=== PATIENT | female | born 1960 | race Caucasian/White ===

== ENCOUNTER 2017-08-02 20:58 | Emergency (ER) | payer SELFPAY ==
[~2017-08-02] VITALS: Ht 149.9 cm; Wt 54.4 kg
--- NOTE | 2017-08-02 20:58 | ER Report ---
History and Physical Time Seen By MD: 20:57 HPI/ROS CHIEF COMPLAINT: dysuria HISTORY OF PRESENT ILLNESS: This is a 57 year old female. She is intoxicated. She called the ambulance because of lower abdominal spasms that have been happening off and on for several weeks. Having some dysuria when she urinates. Also has some itching in the perineal area, and possibly a little bit of rash/ redness. No vaginal discharge. Currently without pain. No shortness of breath. No chest pain. No problems with bowels. Allergies: Coded Allergies: No Known Drug Allergies (Verified , 12/24/16) Home Meds Reported Medications Ranitidine Hcl (RANITIDINE HCL) 75 Mg Tablet, 150 MG PO QDAY 03/14/13 Omeprazole Magnesium (Prilosec Otc) 20 Mg Tablet.dr, 20 MG PO DAILY 05/11/12 Discontinued Scripts Amoxicillin/Pot Clav 875-125 Mg Tab (AUGMENTIN 875-125 TABLET) 1 Each Tablet, 1 TAB PO Q12H for 7 Days, #14 TAB Prov:SEJAL PRATER MD 12/24/16 Reviewed Nurses Notes: Yes Hx Smoking: Yes (1/2PPD) Smoking Status: Current: Every Day Smoker Exposure to Second Hand Smoke?: Yes Hx Substance Use Disorder: No Hx Alcohol Use: Yes Constitutional Vital Sign - Last 24 Hours 08/02/17 08/02/17 08/02/17 08/02/17 20:55 20:58 21:00 21:13 Temp 97.0 Pulse 67 65 ??? Resp 18 B/P (MAP) 130/45 133/88 (103) Pulse Ox 92 92 08/02/17 08/02/17 08/02/17 08/02/17 21:28 21:30 21:40 21:43 Pulse 67 80 B/P (MAP) 148/94 (112) 133/101 (112) Pulse Ox 91 90 08/02/17 21:58 Pulse ??? Physical Exam General Appearance: The patient is alert. No acute distress. Intoxicated. Eyes: Pupils are equal, round. No pallor or icterus, but she does have some injection. ENT: Mucous membranes are moist. Normal oral mucosa. Posterior oropharynx is normal. Respiratory: Lungs are clear to auscultation. Cardiovascular: Regular rate and rhythm. No murmurs, gallops or rubs. Gastrointestinal: Abdomen is soft and non tender. Nondistended. Normal active bowel sounds. No costovertebral angle tenderness with percussion. Genitourinary: Patient did not want full exam in this area, can see some slight rash with some satellite lesions on the perineal area. Neurological: Alert and oriented x3. No focal neurologic deficits. Skin: Warm and dry. No other rash other than noted above. DIFFERENTIAL DIAGNOSIS: After history and physical exam, differential diagnosis was considered for dysuria with itching and rash. Will check for urinary tract infection. Also looks like possible tinnea or yeast. Medical Decision Making Data Points Result Diagram: 08/02/17 2100 08/02/17 2100 Laboratory Hematology Test 08/02/17 21:00 08/02/17 21:20 Red Blood Count 4.67 M/uL (4.17-5.56) Mean Corpuscular Volume 95.3 fL (80.0-96.0) Mean Corpuscular Hemoglobin 32.4 pg (26.0-33.0) Mean Corpuscular Hemoglobin Concent 33.9 g/dL (32.0-36.0) Red Cell Distribution Width 13.7 % (11.5-14.5) Mean Platelet Volume 7.8 fL (7.2-11.1) Neutrophils (%) (Auto) 36.1 % (39.4-72.5) Lymphocytes (%) (Auto) 55.9 % (17.6-49.6) Monocytes (%) (Auto) 4.7 % (4.1-12.4) Eosinophils (%) (Auto) 2.5 % (0.4-6.7) Basophils (%) (Auto) 0.8 % (0.3-1.4) Nucleated RBC Relative Count (auto) 0.0 /100WBC Neutrophils # (Auto) 2.6 K/uL (2.0-7.4) Lymphocytes # (Auto) 4.0 K/uL (1.3-3.6) Monocytes # (Auto) 0.3 K/uL (0.3-1.0) Eosinophils # (Auto) 0.2 K/uL (0.0-0.5) Basophils # (Auto) 0.1 K/uL (0.0-0.1) Nucleated RBC Absolute Count (auto) 0.00 K/uL Sodium Level 139 mmol/L (137-145) Potassium Level 3.6 mmol/L (3.5-5.0) Chloride Level 103 mmol/L (98-107) Carbon Dioxide Level 23 mmol/L (22-31) Blood Urea Nitrogen 8 mg/dl (7-18) Creatinine 0.90 mg/dl (0.52-1.04) Glomerular Filtration Rate Calc > 60.0 Random Glucose 74 mg/dl (75-110) Calcium Level 9.2 mg/dl (8.4-10.2) Total Bilirubin 0.5 mg/dl (0.2-1.3) Aspartate Amino Transf (AST/SGOT) 30 U/L (0-35) Alanine Aminotransferase (ALT/SGPT) 33 U/L (0-56) Alkaline Phosphatase 94 U/L (0-126) Total Protein 7.6 gm/dl (6.3-8.2) Albumin 4.4 g/dl (3.5-5.0) Urine Color Adelina Urine Clarity Clear Urine pH 6.0 pH (4.8-9.5) Urine Specific [place] 1.002 Urine Protein Negative mg/dL (NEGATIVE) Urine Glucose (UA) Negative mg/dL (NEGATIVE) Urine Ketones Negative mg/dL (NEGATIVE) Urine Blood Small (NEGATIVE) Urine Nitrite Positive (NEGATIVE) Urine Bilirubin Negative (NEGATIVE) Urine Urobilinogen Negative mg/dL (0.2-1.9) Urine Leukocyte Esterase Negative (NEGATIVE) Urine RBC <1 /HPF (0-2/HPF) Urine WBC None /HPF (0-5/HPF) Urine Squamous Epithelial Cells None /LPF (</=FEW) Urine Bacteria Negative /HPF (NONE-FEW) Urine Mucus None /HPF (NONE-FEW) Chemistry Test 08/02/17 21:00 08/02/17 21:20 White Blood Count 7.1 k/uL (4.5-11.0) Red Blood Count 4.67 M/uL (4.17-5.56) Hemoglobin 15.1 g/dL (12.0-16.0) Hematocrit 44.6 % (34.0-47.0) Mean Corpuscular Volume 95.3 fL (80.0-96.0) Mean Corpuscular Hemoglobin 32.4 pg (26.0-33.0) Mean Corpuscular Hemoglobin Concent 33.9 g/dL (32.0-36.0) Red Cell Distribution Width 13.7 % (11.5-14.5) Platelet Count 248 K/uL (150-450) Mean Platelet Volume 7.8 fL (7.2-11.1) Neutrophils (%) (Auto) 36.1 % (39.4-72.5) Lymphocytes (%) (Auto) 55.9 % (17.6-49.6) Monocytes (%) (Auto) 4.7 % (4.1-12.4) Eosinophils (%) (Auto) 2.5 % (0.4-6.7) Basophils (%) (Auto) 0.8 % (0.3-1.4) Nucleated RBC Relative Count (auto) 0.0 /100WBC Neutrophils # (Auto) 2.6 K/uL (2.0-7.4) Lymphocytes # (Auto) 4.0 K/uL (1.3-3.6) Monocytes # (Auto) 0.3 K/uL (0.3-1.0) Eosinophils # (Auto) 0.2 K/uL (0.0-0.5) Basophils # (Auto) 0.1 K/uL (0.0-0.1) Nucleated RBC Absolute Count (auto) 0.00 K/uL Glomerular Filtration Rate Calc > 60.0 Calcium Level 9.2 mg/dl (8.4-10.2) Total Bilirubin 0.5 mg/dl (0.2-1.3) Aspartate Amino Transf (AST/SGOT) 30 U/L (0-35) Alanine Aminotransferase (ALT/SGPT) 33 U/L (0-56) Alkaline Phosphatase 94 U/L (0-126) Total Protein 7.6 gm/dl (6.3-8.2) Albumin 4.4 g/dl (3.5-5.0) Urine Color Adelina Urine Clarity Clear Urine pH 6.0 pH (4.8-9.5) Urine Specific [place] 1.002 Urine Protein Negative mg/dL (NEGATIVE) Urine Glucose (UA) Negative mg/dL (NEGATIVE) Urine Ketones Negative mg/dL (NEGATIVE) Urine Blood Small (NEGATIVE) Urine Nitrite Positive (NEGATIVE) Urine Bilirubin Negative (NEGATIVE) Urine Urobilinogen Negative mg/dL (0.2-1.9) Urine Leukocyte Esterase Negative (NEGATIVE) Urine RBC <1 /HPF (0-2/HPF) Urine WBC None /HPF (0-5/HPF) Urine Squamous Epithelial Cells None /LPF (</=FEW) Urine Bacteria Negative /HPF (NONE-FEW) Urine Mucus None /HPF (NONE-FEW) Urinalysis Test 08/02/17 21:20 Urine Color Adelina Urine Clarity Clear Urine pH 6.0 pH (4.8-9.5) Urine Specific [place] 1.002 Urine Protein Negative mg/dL (NEGATIVE) Urine Glucose (UA) Negative mg/dL (NEGATIVE) Urine Ketones Negative mg/dL (NEGATIVE) Urine Blood Small (NEGATIVE) Urine Nitrite Positive (NEGATIVE) Urine Bilirubin Negative (NEGATIVE) Urine Urobilinogen Negative mg/dL (0.2-1.9) Urine Leukocyte Esterase Negative (NEGATIVE) Urine RBC <1 /HPF (0-2/HPF) Urine WBC None /HPF (0-5/HPF) Urine Squamous Epithelial Cells None /LPF (</=FEW) Urine Bacteria Negative /HPF (NONE-FEW) Urine Mucus None /HPF (NONE-FEW) ED Course/Re-evaluation Clinical Indication for ER IV: IV Access ED Course urinalysis unremarkable other than nitrites and mild blood on dipstick, but microscopic negative. Will culture. Treat with Diflucan x1 dose for fungal infection. Decision to Disposition Date: Aug 02, 2017 Decision to Disposition Time: 22:04 Depart Departure Latest Vital Signs Vital Signs Date Time Temp Pulse Resp B/P (MAP) Pulse Ox O2 Delivery O2 Flow Rate FiO2 08/02/17 21:58 ??? 08/02/17 21:43 90 08/02/17 21:40 133/101 (112) 08/02/17 20:55 97.0 18 Impression: Primary Impression: Yeast vaginitis Condition: Improved Disposition: HOME OR SELF-CARE Patient Instructions: Dysuria (ED), Skin Yeast Infection (ED) Additional Instructions: Call your regular doctor to schedule a follow-up visit. Take Diflucan 150mg tablet one time tomorrow morning. A urine culture will be done and should be available in about 48-72hours. NICKI BERNARD MD Aug 02, 2017 20:58
[2017-08-02 21:21] LABS: PLATELET COUNT, AUTOMATED 248 K/uL (150-450)
[2017-08-02 21:40] VITALS: BP 133/101
[2017-08-02] MEDS ORDERED: FLUCONAZOLE 150 MG TAB PO ONE (22:05)
== END 2017-08-02 22:14 | disposition home or self-care (01) ==
LOC: ER 21:02
DX: N76.0 Acute vaginitis (principal)
CPT/HCPCS: 81001; 82040; 82247; 82310; 82374; 82435; 82565; 82947; 84075; 84132; 84155; 84295; 84450; 84460; 84520; 85025; 87088; 99284

== ENCOUNTER → 2017-08-02 | Outpatient (CLI) | payer SELFPAY ==
[~2017-08-02] MED LIST: ACYC800T99 PO; AMOX-559 PO; CEP500 PO; CEPH500T7 PO; COLACE; DOXY100T3 PO; HCTZ PO; KET10 PO; LIDO700A29 TD; LOR5 PO; LOR5/325 PO; MET10; NAP250 PO; OMEP-153 PO; OMEP-218 PO; RABE20TA33 PO; RANI25TA2 PO; RANI75TA5 PO; [UNRECOGNIZED DRUG - CODE]
== END ==
LOC: AMB 20:30
PROVIDERS: ATTEND Nurse Practitioner
DX: R39.89 Other symptoms and signs involving the genitourinary system (principal); K59.00 Constipation, unspecified
CPT/HCPCS: A0425; A0427

== ENCOUNTER 2017-09-23 22:17 | Emergency (ER) | payer SELFPAY ==
--- NOTE | 2017-09-23 22:31 | ER Report ---
History and Physical Time Seen By MD: 22:24 HPI/ROS CHIEF COMPLAINT: Chest pain or shortness of breath HISTORY OF PRESENT ILLNESS: This is a 57-year-old female. She came in by EMS because of chest pain and shortness of breath. They gave her nitroglycerin and aspirin in the field and the pain went away. Patient says she has not been drinking but is clearly intoxicated. Similar to prior visits. She denies any pain at this time. She no longer feels short of breath. She denies any cough. Sounds like the chest pain and shortness breath started sometime tonight but she cannot pinpoint exactly when. She denies any nausea or vomiting or abdominal pain. She has no muscle aches or pains. She denies any fevers or chills. She is not very cooperative with answering questions at this time. Allergies: Coded Allergies: No Known Drug Allergies (Verified , 09/23/17) Home Meds Discontinued Reported Medications Ranitidine Hcl (RANITIDINE HCL) 75 Mg Tablet, 150 MG PO QDAY 03/14/13 Omeprazole Magnesium (Prilosec Otc) 20 Mg Tablet.dr, 20 MG PO DAILY 05/11/12 Reviewed Nurses Notes: Yes Hx Smoking: Yes (1/2PPD) Smoking Status: Current: Every Day Smoker Exposure to Second Hand Smoke?: Yes Hx Substance Use Disorder: No Hx Alcohol Use: Yes Constitutional Vital Sign - Last 24 Hours 09/23/17 09/23/17 09/23/17 09/23/17 22:24 22:26 22:32 22:38 Temp 97.9 Pulse 65 66 Resp 17 20 B/P (MAP) 114/77 (89) 114/77 116/79 (91) Pulse Ox 87 96 O2 Delivery Room Air 09/23/17 09/23/17 09/23/17 09/23/17 22:43 22:47 23:00 23:02 Pulse 62 64 Resp 75 16 B/P (MAP) 104/67 (79) Pulse Ox 95 97 O2 Flow Rate 3.0 09/23/17 23:02 Pulse 64 Resp 16 Pulse Ox 97 Physical Exam General Appearance: The patient is alert, has no immediate need for airway protection and no current signs of toxicity. Eyes: Pupils equal and round no injection. ENT: Normal oral mucosa. Moist mucous membranes. Neck: Neck is supple and non tender. Respiratory: Chest is non tender, lungs are clear to auscultation. Cardiac: regular rate and rhythm Gastrointestinal: Abdomen is soft and non tender, no masses, bowel sounds normal. Musculoskeletal: Extremities have full range of motion. Skin: No rashes or lesions. DIFFERENTIAL DIAGNOSIS: After history and physical exam differential diagnosis was considered for chest pain including but not limited to myocardial ischemia, pericarditis pulmonary embolus, chest wall pain, pleural inflammation and pulmonary infectious causes. Medical Decision Making Data Points Result Diagram: 09/23/17220909/23/172209 Laboratory Hematology Test 09/23/17 22:10 09/23/17 22:34 Red Blood Count 4.82 M/uL (4.17-5.56) Mean Corpuscular Volume 96.0 fL (80.0-96.0) Mean Corpuscular Hemoglobin 32.1 pg (26.0-33.0) Mean Corpuscular Hemoglobin Concent 33.5 g/dL (32.0-36.0) Red Cell Distribution Width 13.5 % (11.5-14.5) Mean Platelet Volume 8.2 fL (7.2-11.1) Neutrophils (%) (Auto) 47.0 % (39.4-72.5) Lymphocytes (%) (Auto) 45.2 % (17.6-49.6) Monocytes (%) (Auto) 5.4 % (4.1-12.4) Eosinophils (%) (Auto) 1.7 % (0.4-6.7) Basophils (%) (Auto) 0.7 % (0.3-1.4) Nucleated RBC Relative Count (auto) 0.1 /100WBC Neutrophils # (Auto) 4.0 K/uL (2.0-7.4) Lymphocytes # (Auto) 3.9 K/uL (1.3-3.6) Monocytes # (Auto) 0.5 K/uL (0.3-1.0) Eosinophils # (Auto) 0.1 K/uL (0.0-0.5) Basophils # (Auto) 0.1 K/uL (0.0-0.1) Nucleated RBC Absolute Count (auto) 0.01 K/uL D-Dimer Quantitative (PE/DVT) 0.32 ug/ml (0-0.50) Sodium Level 148 mmol/L (137-145) Potassium Level 3.4 mmol/L (3.5-5.0) Chloride Level 109 mmol/L (98-107) Carbon Dioxide Level 22 mmol/L (22-31) Blood Urea Nitrogen 9 mg/dl (7-18) Creatinine 0.70 mg/dl (0.52-1.04) Glomerular Filtration Rate Calc > 60.0 Random Glucose 65 mg/dl (75-110) Calcium Level 9.3 mg/dl (8.4-10.2) Total Bilirubin 0.4 mg/dl (0.2-1.3) Aspartate Amino Transf (AST/SGOT) 40 U/L (0-35) Alanine Aminotransferase (ALT/SGPT) 43 U/L (0-56) Alkaline Phosphatase 87 U/L (0-126) Troponin I < 0.012 ng/ml B-Type Natriuretic Peptide 52 pg/ml (0-100) Total Protein 8.2 gm/dl (6.3-8.2) Albumin 4.7 g/dl (3.5-5.0) Influenza Virus Type A (PCR) Negative (NEGATIVE) Influenza Virus Type B (PCR) Negative (NEGATIVE) Chemistry Test 09/23/17 22:10 09/23/17 22:34 White Blood Count 8.5 k/uL (4.5-11.0) Red Blood Count 4.82 M/uL (4.17-5.56) Hemoglobin 15.5 g/dL (12.0-16.0) Hematocrit 46.3 % (34.0-47.0) Mean Corpuscular Volume 96.0 fL (80.0-96.0) Mean Corpuscular Hemoglobin 32.1 pg (26.0-33.0) Mean Corpuscular Hemoglobin Concent 33.5 g/dL (32.0-36.0) Red Cell Distribution Width 13.5 % (11.5-14.5) Platelet Count 263 K/uL (150-450) Mean Platelet Volume 8.2 fL (7.2-11.1) Neutrophils (%) (Auto) 47.0 % (39.4-72.5) Lymphocytes (%) (Auto) 45.2 % (17.6-49.6) Monocytes (%) (Auto) 5.4 % (4.1-12.4) Eosinophils (%) (Auto) 1.7 % (0.4-6.7) Basophils (%) (Auto) 0.7 % (0.3-1.4) Nucleated RBC Relative Count (auto) 0.1 /100WBC Neutrophils # (Auto) 4.0 K/uL (2.0-7.4) Lymphocytes # (Auto) 3.9 K/uL (1.3-3.6) Monocytes # (Auto) 0.5 K/uL (0.3-1.0) Eosinophils # (Auto) 0.1 K/uL (0.0-0.5) Basophils # (Auto) 0.1 K/uL (0.0-0.1) Nucleated RBC Absolute Count (auto) 0.01 K/uL D-Dimer Quantitative (PE/DVT) 0.32 ug/ml (0-0.50) Glomerular Filtration Rate Calc > 60.0 Calcium Level 9.3 mg/dl (8.4-10.2) Total Bilirubin 0.4 mg/dl (0.2-1.3) Aspartate Amino Transf (AST/SGOT) 40 U/L (0-35) Alanine Aminotransferase (ALT/SGPT) 43 U/L (0-56) Alkaline Phosphatase 87 U/L (0-126) Troponin I < 0.012 ng/ml B-Type Natriuretic Peptide 52 pg/ml (0-100) Total Protein 8.2 gm/dl (6.3-8.2) Albumin 4.7 g/dl (3.5-5.0) Influenza Virus Type A (PCR) Negative (NEGATIVE) Influenza Virus Type B (PCR) Negative (NEGATIVE) Coagulation Test 09/23/17 22:10 D-Dimer Quantitative (PE/DVT) 0.32 ug/ml EKG/Imaging EKG Interpretation 12 lead EKG: Rhythm: normal sinus rhythm, rate 64 [place]: normal QRS: normal ST segments: normal Imaging EXAMINATION: Portable chest radiograph single view at 2300 hours HISTORY: Chest pain. COMPARISON: 03/10/2012. FINDINGS: A single portable AP view of the chest is obtained. Lines/tubes: None. Lungs/pleura: No focal consolidation or pleural effusion. Subsegmental scar in the right middle lobe. Heart: Negative. Mediastinum: Negative. Bony structures/body wall: Negative. IMPRESSION: 1. No radiographic evidence of acute cardiopulmonary disease. 2. Right middle lobe subsegmental scar is unchanged. Report Dictated By: Henny Thurman MD at 09/23/2017 11:19 PM ED Course/Re-evaluation Clinical Indication for ER IV: IV Access ED Course Patient had her IV placed, labs were pending. EKG as noted above and x-ray negative. Patient decided to leave AGAINST MEDICAL ADVICE prior to completion of her care. She pulled out her own IV. Nursing staff assisted her with getting a ride. After the fact, on review of her labs, I don't see anything worrisome at this time other than a slightly low glucose. Decision to Disposition Date: Sep 24, 2017 Decision to Disposition Time: 23:15 Depart Departure Latest Vital Signs Vital Signs Date Time Temp Pulse Resp B/P (MAP) Pulse Ox O2 Delivery O2 Flow Rate FiO2 09/23/17 23:02 64 16 97 09/23/17 23:00 104/67 (79) 09/23/17 22:43 3.0 09/23/17 22:26 97.9 Room Air Impression: Primary Impression: Chest pain Additional Impression: Alcohol intoxication Condition: Improved Disposition: AGAINST MED ADV / DISCONT CARE Problem Qualifiers Primary Impression: Chest pain Chest pain type: unspecified Qualified Codes: R07.9 - Chest pain, unspecified Additional Impression: Alcohol intoxication Complication of substance-induced condition: uncomplicated Qualified Codes: F10.920 - Alcohol use, unspecified with intoxication, uncomplicated NICKI BERNARD MD Sep 23, 2017 22:31
[2017-09-23] MEDS ORDERED: ASPIRIN 81 MG CHEW PO ONE (22:35)
[2017-09-23 22:43] LABS: PLATELET COUNT, AUTOMATED 263 K/uL (150-450)
[2017-09-23 23:00] VITALS: BP 104/67
--- NOTE | 2017-09-23 23:09 | EKG ---
FACILITY: [facility] PATIENT NAME: WENDY DALY : [id number] MR: [id number] V: [id number] EXAM DATE: ORDERING PHYSICIAN: NICKI BERNARD TECHNOLOGIST: NENA Test Reason : CHEST PAIN Blood Pressure : / mmHG Vent. Rate : 064 BPM Atrial Rate : 064 BPM P-R Int : 186 ms QRS Dur : 100 ms QT Int : 422 ms P-R-T Axes : 075 082 077 degrees QTc Int : 435 ms Normal sinus rhythm Possible Inferior infarct , age undetermined Abnormal ECG When compared with ECG of 26-SEP-2014 20:05, Vent. rate has decreased BY 31 BPM Confirmed by MICHAELLE WRIGHT ([id number]) on 09/23/2017 11:25:15 PM Referred By: Confirmed By:MICHAELLE WRIGHT
--- NOTE | 2017-09-23 23:23 | RADIOLOGY IMAGING REPORT ---
FACILITY: [facility] - [place] PATIENT NAME: Francisca Mitchell : 1960 MR: [id number] V: [id number] EXAM DATE: ORDERING PHYSICIAN: NICKI BERNARD TECHNOLOGIST: Location: [facility] [place] Patient: Francisca Mitchell : 1960 Visit/Account:[id number] Date of Sevice: 09/23/2017 EXAMINATION: Portable chest radiograph single view at 2300 hours HISTORY: Chest pain. COMPARISON: 03/10/2012. FINDINGS: A single portable AP view of the chest is obtained. Lines/tubes: None. Lungs/pleura: No focal consolidation or pleural effusion. Subsegmental scar in the right middle lobe . Heart: Negative. Mediastinum: Negative. Bony structures/body wall: Negative. IMPRESSION: 1. No radiographic evidence of acute cardiopulmonary disease. 2. Right middle lobe subsegmental scar is unchanged. Report Dictated By: Henny Thurman MD at 09/23/2017 11:19 PM Report E-Signed By: Henny Thurman MD at 09/23/2017 11:20 PM WSN:[id number]
== END 2017-09-23 23:25 | disposition left against medical advice (07) ==
LOC: ER 22:29
DX: F10.920 Alcohol use, unspecified with intoxication, uncomplicated (principal); R07.9 Chest pain, unspecified; R94.31 Abnormal electrocardiogram [ECG] [EKG]
CPT/HCPCS: 71045; 82040; 82247; 82310; 82374; 82435; 82565; 82947; 83880; 84075; 84132; 84155; 84295; 84450; 84460; 84484; 84520; 85025; 85379; 87502; 93005; 99284

== ENCOUNTER → 2017-09-23 | Outpatient (CLI) | payer SELFPAY | LOC: AMB 21:46 | PROVIDERS: ATTEND Nurse Practitioner | DX: R07.9 Chest pain, unspecified (principal); R06.02 Shortness of breath | CPT/HCPCS: A0425; A0427 ==

== ENCOUNTER 2018-01-02 18:58 | Emergency (ER) | payer SELFPAY ==
[~2018-01-02 18:58] MED LIST changes: -OMEP-125 PO; -PHEN200T32 PO; -RANI-366 PO
[2018-01-02 19:00] VITALS: BP 119/95
[2018-01-02] MEDS ORDERED: OMEP-125 PO (19:06)
[2018-01-02] MEDS ORDERED: RANI-366 PO (19:06)
--- NOTE | 2018-01-02 19:14 | ER Report ---
History and Physical Time Seen By MD: 19:14 Hx. of Stated Complaint: Patient with bladder pain and shingles outbreak HPI/ROS CHIEF COMPLAINT: Bladder infection HISTORY OF PRESENT ILLNESS: This is a 57-year-old female who presents to the emergency department for a bladder infection and concerns about shingles. Patient states that over the last few days she's had increased bladder pain very similar to a urinary tract infections that she's had in the past. Burning sensation with urination frequency and urgency. Patient also states that she's had an intermittent "shingles infection" for the last urine half to 2 years. Patient states that she's been seen down at the [facility] they've diagnosed her with shingles however they have not given her any medications. Patient states now that she has Medicaid she is able to get medications. Patient states that the skin lesions to her chest on the left and right side have a burning sensation with pain. No chest pain or shortness of breath, no aches or chills. No nausea or vomiting. REVIEW OF SYSTEMS: Respiratory: No cough, no dyspnea. Cardiovascular: No chest pain, no palpitations. Gastrointestinal: No vomiting, no abdominal pain. Musculoskeletal: No back pain. Genitourinary: As above. Integumentary: As above. Allergies: Coded Allergies: No Known Drug Allergies (Verified , 01/02/18) Home Meds Active Scripts Phenazopyridine Hcl (PHENAZOPYRIDINE HCL) 200 Mg Tablet, 200 MG PO TID, #9 TAB 0 Refills Prov:FELIPE ROJO [facility]- 01/02/18 Acyclovir (ACYCLOVIR) 800 Mg Tablet, 800 MG PO 5XD for 7 Days, #35 TAB 0 Refills Prov:FELIPE ROJO [facility]-BC 01/02/18 Reported Medications Ranitidine Hcl (ZANTAC) 150 Mg Tablet, 150 MG PO DAILY, TAB 01/02/18 Omeprazole (OMEPRAZOLE) 20 Mg Capsule., 1 CAP PO QDAY, CAP 01/02/18 Past Medical/Surgical History Patient has a past medical and surgical history of attention, GERD, urinary tract infections, post menopause, bladder suspension, wears glasses, hard of hearing, alcohol abuse,. Reviewed Nurses Notes: Yes Hx Smoking: Yes (1/2PPD) Smoking Status: Current: Every Day Smoker Exposure to Second Hand Smoke?: Yes Hx Substance Use Disorder: No Hx Alcohol Use: Yes Constitutional Vital Sign - Last 24 Hours 01/02/18 19:00 Temp 98.5 Pulse 82 Resp 16 B/P (MAP) 119/95 Pulse Ox 93 O2 Delivery Room Air Physical Exam General Appearance: The patient is alert, has no immediate need for airway protection and no current signs of toxicity. Eyes: Pupils equal and round no injection. Respiratory: Chest is non tender, lungs are clear to auscultation. Cardiac: regular rate and rhythm. Gastrointestinal: Abdomen is soft and non tender, no masses, bowel sounds normal. Musculoskeletal: Neck: Neck is supple and non tender. Extremities have full range of motion and are non tender. Skin: Dermatitis appearing rash to the chest questionable shingles type of rash on the left anterior chest with some overlapping on the right, lesions are blanchable, no sign of infection. Non-weeping lesions. DIFFERENTIAL DIAGNOSIS: After history and physical exam differential diagnosis was considered for urinary tract infection, generalized abdominal pain, dermatitis, contact dermatitis and constipation. Medical Decision Making Data Points Laboratory Hematology Test 01/02/18 19:10 Urine Color Straw Urine Clarity Clear Urine pH 6.0 pH (4.8-9.5) Urine Specific Mchenry 1.001 Urine Protein Negative mg/dL (NEGATIVE) Urine Glucose (UA) Negative mg/dL (NEGATIVE) Urine Ketones Negative mg/dL (NEGATIVE) Urine Blood Small (NEGATIVE) Urine Nitrite Negative (NEGATIVE) Urine Bilirubin Negative (NEGATIVE) Urine Urobilinogen Negative mg/dL (0.2-1.9) Urine Leukocyte Esterase Negative (NEGATIVE) Urine RBC None /HPF (0-2/HPF) Urine WBC None /HPF (0-5/HPF) Urine Squamous Epithelial Cells None /LPF (</=FEW) Urine Bacteria Negative /HPF (NONE-FEW) Urine Mucus None /HPF (NONE-FEW) Chemistry Test 01/02/18 19:10 Urine Color Straw Urine Clarity Clear Urine pH 6.0 pH (4.8-9.5) Urine Specific Mchenry 1.001 Urine Protein Negative mg/dL (NEGATIVE) Urine Glucose (UA) Negative mg/dL (NEGATIVE) Urine Ketones Negative mg/dL (NEGATIVE) Urine Blood Small (NEGATIVE) Urine Nitrite Negative (NEGATIVE) Urine Bilirubin Negative (NEGATIVE) Urine Urobilinogen Negative mg/dL (0.2-1.9) Urine Leukocyte Esterase Negative (NEGATIVE) Urine RBC None /HPF (0-2/HPF) Urine WBC None /HPF (0-5/HPF) Urine Squamous Epithelial Cells None /LPF (</=FEW) Urine Bacteria Negative /HPF (NONE-FEW) Urine Mucus None /HPF (NONE-FEW) Urinalysis Test 01/02/18 19:10 Urine Color Straw Urine Clarity Clear Urine pH 6.0 pH (4.8-9.5) Urine Specific Mchenry 1.001 Urine Protein Negative mg/dL (NEGATIVE) Urine Glucose (UA) Negative mg/dL (NEGATIVE) Urine Ketones Negative mg/dL (NEGATIVE) Urine Blood Small (NEGATIVE) Urine Nitrite Negative (NEGATIVE) Urine Bilirubin Negative (NEGATIVE) Urine Urobilinogen Negative mg/dL (0.2-1.9) Urine Leukocyte Esterase Negative (NEGATIVE) Urine RBC None /HPF (0-2/HPF) Urine WBC None /HPF (0-5/HPF) Urine Squamous Epithelial Cells None /LPF (</=FEW) Urine Bacteria Negative /HPF (NONE-FEW) Urine Mucus None /HPF (NONE-FEW) ED Course/Re-evaluation ED Course The patient was admitted to room. A history and physical were obtained. Her diagnoses were considered. Negative UA, there was however small amount of blood but otherwise unremarkable. Patient did not want anything else done. Patient was also convinced that she had shingles outbreak on her chest is been going on for the last year and a half intermittently did chart explained to her that I do not think this is shingles visits on both sides of the chest however she is very convinced that this is exactly what it is sees been diagnosed with "shingles" at the [facility]. I did tell the patient we will check the urine and she was fine with this she did not want anything else done. Patient was very agitated and confrontational during the exam and during the stay in the ER. Patient's continued pacing in the room and out of the room was instructed to return to her room several times. I did tell patient that the urine did not show any signs of infection she's had she was okay with that but wanted something anyhow so I did give her some Pyridium as a trial. She was also convinced that the lesions on her chest were a shingles outbreak so I did tell her we can trial of acyclovir. Patient said this is fine and is ready to go home she wants to "leave now". I also instructed the patient to establish with a primary care provider in town she was given a list of the local providers. Patient had no further questions and was discharged home. Decision to Disposition Date: Jan 02, 2018 Decision to Disposition Time: 19:58 Depart Departure Latest Vital Signs Vital Signs Date Time Temp Pulse Resp B/P (MAP) Pulse Ox O2 Delivery O2 Flow Rate FiO2 01/02/18 19:00 98.5 82 16 119/95 93 Room Air Impression: Primary Impression: Shingles rash Additional Impression: Lower abdominal pain of unknown etiology Condition: Improved Disposition: HOME OR SELF-CARE New Scripts Phenazopyridine Hcl (PHENAZOPYRIDINE HCL) 200 Mg Tablet 200 MG PO TID, #9 TAB 0 Refills Prov: FELIPE ROJO [employer]- 01/02/18 Acyclovir (ACYCLOVIR) 800 Mg Tablet 800 MG PO 5XD for 7 Days, #35 TAB 0 Refills Prov: FELIPE ROJO [facility]- 01/02/18 Patient Instructions: Abdominal Pain (ED), Shingles (ED) Additional Instructions: Drink plenty of water. Get plenty of rest. Take the medications as prescribed. Establish care with a new primary care provider. Return to the ED for any other concerns or worsening symptoms. Problem Qualifiers Primary Impression: Shingles rash Herpes zoster complications: without complications Qualified Codes: B02.9 - Zoster without complications FELIPE ROJO [employer]-BC Jan 02, 2018 19:14
[2018-01-02] MEDS ORDERED: PHEN200T32 PO (20:01)
[2018-01-02] MEDS ORDERED: ACYC800T99 PO (20:01)
== END 2018-01-02 20:10 | disposition home or self-care (01) ==
LOC: ER 19:17
DX: B02.9 Zoster without complications (principal); R10.30 Lower abdominal pain, unspecified
CPT/HCPCS: 81001; 99282

== ENCOUNTER → 2018-01-02 | Outpatient (CLI) | payer SELFPAY ==
[~2018-01-02] MED LIST changes: +OMEP-125 PO; +PHEN200T32 PO; +RANI-366 PO
== END ==
LOC: AMB 18:36
PROVIDERS: ATTEND Nurse Practitioner
DX: R39.89 Other symptoms and signs involving the genitourinary system (principal)

== ENCOUNTER 2018-03-16 14:46 | Emergency (ER) | payer MEDICAID ==
[~2018-03-16 14:46] MED LIST changes: +OMEP-125 PO; +PHEN200T32 PO; +RANI-366 PO
[2018-03-16] MEDS ORDERED: AMOX-559 PO (15:42)
[2018-03-16] MEDS ORDERED: ACYC800T99 PO (15:42)
[2018-03-16 15:45] VITALS: BP 129/101
--- NOTE | 2018-03-16 15:46 | ER Report ---
History and Physical Time Seen By MD: 15:40 Hx. of Stated Complaint: EARS AND NOSE STUFFED UP, THROAT HURTS HPI/ROS CHIEF COMPLAINT: Sinus pressure, bilateral ear pain, sore throat, anterior cervical lymphadenopathy HISTORY OF PRESENT ILLNESS: Patient is a 57-year-old female here with complaints of the above for the past 3 days. Patient does not have a primary care physician and came to the emergency department for treatment of her acute complaints. Patient reports mild nausea, decreased appetite, subjective fevers and chills. Patient denies blurred vision, nasal drainage, difficulty swallowing , chest pain, shortness of breath, abdominal pain, dysuria. REVIEW OF SYSTEMS: Constitutional: + fever, + chills. Eyes: No discharge. ENT: + sore throat, bilateral ear pain Cardiovascular: No chest pain, no palpitations. Respiratory: No cough, no shortness of breath. Gastrointestinal: No abdominal pain, no vomiting. Genitourinary: No hematuria. Musculoskeletal: No back pain. Skin: + chest rash. Neurological: No headache. Allergies: Coded Allergies: No Known Drug Allergies (Verified , 03/16/18) Home Meds Active Scripts Acyclovir (ACYCLOVIR) 800 Mg Tablet, 800 MG PO QID for 5 Days, #20 TAB Prov:NADIA BRISENO DO 03/16/18 Amoxicillin/Pot Clav 875-125 Mg Tab (AUGMENTIN 875-125 TABLET) 1 Each Tablet, 1 TAB PO Q12H for 7 Days, #14 TAB Prov:NADIA BRISENO DO 03/16/18 Discontinued Reported Medications Ranitidine Hcl (ZANTAC) 150 Mg Tablet, 150 MG PO DAILY, TAB 01/02/18 Omeprazole (OMEPRAZOLE) 20 Mg Capsule.dr, 1 CAP PO QDAY, CAP 01/02/18 Discontinued Scripts Phenazopyridine Hcl (PHENAZOPYRIDINE HCL) 200 Mg Tablet, 200 MG PO TID, #9 TAB 0 Refills Prov:FELIPE ROJO [facility]-BC 01/02/18 Acyclovir (ACYCLOVIR) 800 Mg Tablet, 800 MG PO 5XD for 7 Days, #35 TAB 0 Refills Prov:FELIPE ROJO [facility] 01/02/18 Hx Smoking: Yes (1/2PPD) Smoking Status: Current: Every Day Smoker Exposure to Second Hand Smoke?: Yes Hx Substance Use Disorder: No Hx Alcohol Use: Yes Constitutional Vital Sign - Last 24 Hours 03/16/18 03/16/18 03/16/18 03/16/18 14:46 14:50 14:52 15:00 Temp 97.9 Pulse ??? 71 Resp 16 B/P (MAP) 163/82 (109) 163/82 155/93 (113) Pulse Ox 91 O2 Delivery Room Air 03/16/18 03/16/18 03/16/18 03/16/18 15:01 15:15 15:16 15:30 Pulse 66 65 B/P (MAP) 120/94 (103) 130/89 (103) Pulse Ox 91 91 03/16/18 03/16/18 03/16/18 03/16/18 15:31 15:45 15:46 16:01 Pulse 63 68 ??? B/P (MAP) 129/101 (110) Pulse Ox 92 94 Physical Exam General Appearance: The patient is alert, has no immediate need for airway protection and no signs of toxicity. No acute distress Eyes: Pupils equal and round no pallor or injection. ENT, Mouth: Mucous membranes are moist, mild erythema of the posterior oropharynx, tympanic membranes clear with no signs of air-fluid levels or erythema.. Respiratory: There are no retractions, lungs are clear to auscultation. Cardiovascular: Regular rate and rhythm. Gastrointestinal: Abdomen is soft and non tender, no masses, bowel sounds normal. Neurological: No focal neurological deficits Skin: + vesicular rash on chest Musculoskeletal: Neck is supple non tender. Extremities are nontender, nonswollen and have full range of motion. DIFFERENTIAL DIAGNOSIS: After history and physical exam differential diagnosis was considered for otitis media, otitis externa, strep throat, viral pharyngitis , sinusitis Medical Decision Making Data Points Laboratory Hematology Test 03/16/18 15:10 Group A Streptococcus Screen Negative (NEGATIVE) Chemistry Test 03/16/18 15:10 Group A Streptococcus Screen Negative (NEGATIVE) ED Course/Re-evaluation ED Course Patient is a 57-year-old female here with complaints of bilateral ear pain, sinus pressure,sore throat, tender cervical lymphadenopathy for approximately 3 days. Patient also complained of a rash on her chest which was vesicular in nature consistent with zoster and has been untreated since the patient declined to go to a doctor due to co-pay. Patient received a rapid strep test which was negative. She was given a prescription for Augmentin for her suspected sinus infection as well as a prescription for acyclovir for treatment of her zoster. Patient was advised to follow-up with a PCP in the next several days in order to receive ongoing care. Patient agreed to return promptly if she develops worsening symptoms. Decision to Disposition Date: Mar 16, 2018 Decision to Disposition Time: 16:00 Depart Departure Latest Vital Signs Vital Signs Date Time Temp Pulse Resp B/P (MAP) Pulse Ox O2 Delivery O2 Flow Rate FiO2 03/16/18 16:01 ??? 03/16/18 15:46 94 03/16/18 15:45 129/101 (110) 03/16/18 14:52 97.9 16 Room Air Impression: Primary Impression: Sinus infection Additional Impression: Shingles rash Condition: Condition Unchanged Disposition: HOME OR SELF-CARE New Scripts Acyclovir (ACYCLOVIR) 800 Mg Tablet 800 MG PO QID for 5 Days, #20 TAB Prov: NADIA BRISENO DO 03/16/18 Amoxicillin/Pot Clav 875-125 Mg Tab (AUGMENTIN 875-125 TABLET) 1 Each Tablet 1 TAB PO Q12H for 7 Days, #14 TAB Prov: NADIA BRISENO DO 03/16/18 Patient Instructions: Shingles (ED), Sinusitis (ED) Additional Instructions: Please take one tablet of Augmentin twice daily for 7 days for suspected sinus infection treatment. Please take one tablet of acyclovir 4 times a day for 5 days. Please establish a primary care doctor in the next several days in order to have ongoing treatment. Please return promptly if develop worsening pain, blurred vision, worsening headache, difficulty swallowing. Problem Qualifiers NADIA BRISENO DO Mar 16, 2018 15:45
== END 2018-03-16 16:00 | disposition home or self-care (01) ==
LOC: ER 15:02
DX: J01.90 Acute sinusitis, unspecified (principal); B02.9 Zoster without complications
CPT/HCPCS: 87081; 87880; 99282

== ENCOUNTER 2018-05-30 22:30 | Emergency (ER) | payer MEDICAID ==
[~2018-05-30 22:30] MED LIST changes: +RANI75TA5 PO; -RANI75TA51 PO
--- NOTE | 2018-05-30 22:46 | ER Report ---
History and Physical Time Seen By MD: 22:46 Hx. of Stated Complaint: pt states her heart and stomach are hurting HPI/ROS CHIEF COMPLAINT: chest and epigastric pain HISTORY OF PRESENT ILLNESS: This is a 57 year old female. She complains of mid sternal and epigastric chest pain. On and off for about a week. Nothing makes it better. Somewhat worse with eating. She thinks it is heartburn. She takes Omeprazole and Ranitidine. Denies shortness of breath. No worsening with exertion. She has no nausea or vomiting. Normal bowels. Currently on antibiotics for a urinary tract infection which she questions if it is getting better. No other abdominal pain. Allergies: Coded Allergies: No Known Drug Allergies (Verified , 03/16/18) Home Meds Active Scripts Acyclovir (ACYCLOVIR) 800 Mg Tablet, 800 MG PO QID for 5 Days, #20 TAB Prov:NADIA BRISENO DO 03/16/18 Amoxicillin/Pot Clav 875-125 Mg Tab (AUGMENTIN 875-125 TABLET) 1 Each Tablet, 1 TAB PO Q12H for 7 Days, #14 TAB Prov:NADIA BRISENO DO 03/16/18 Reviewed Nurses Notes: Yes Hx Smoking: Yes (1/2PPD) Smoking Status: Current: Every Day Smoker Exposure to Second Hand Smoke?: Yes Hx Substance Use Disorder: No Hx Alcohol Use: Yes Constitutional Vital Sign - Last 24 Hours 05/30/18 05/30/18 05/30/18 05/30/18 22:30 22:31 22:34 23:00 Temp 97.5 Pulse ??? 73 ??? Resp 16 B/P (MAP) 139/84 (102) 139/84 Pulse Ox 90 O2 Delivery Room Air 05/30/18 05/30/18 05/31/18 23:28 23:30 00:00 Pulse 67 ??? B/P (MAP) 133/82 (99) 128/80 (96) 143/93 (110) Pulse Ox 93 Physical Exam General Appearance: The patient is alert. No acute distress. Eyes: Pupils are equal, round. No pallor, injection or icterus. ENT: Mucous membranes are moist. Normal oral mucosa. Posterior oropharynx is normal. Neck: Supple and non tender. Respiratory: Lungs are clear to auscultation. Cardiovascular: Regular rate and rhythm. No murmurs, gallops or rubs. Gastrointestinal: Abdomen is soft, tender in epigastric area. Nondistended. Normal active bowel sounds. No costovertebral angle tenderness with percussion. Neurological: Alert and oriented x3. Skin: Warm and dry. DIFFERENTIAL DIAGNOSIS: After history and physical exam, differential diagnosis was considered for epigastric pain including but not limited to biliary colic, cholecystitis, peptic ulcer disease, pancreatitis, and gastroenteritis. Medical Decision Making Data Points Result Diagram: 05/30/18230905/30/182309 Laboratory Hematology Test 05/30/18 23:10 Red Blood Count 4.83 M/uL (4.17-5.56) Mean Corpuscular Volume 95.9 fL (80.0-96.0) Mean Corpuscular Hemoglobin 32.3 pg (26.0-33.0) Mean Corpuscular Hemoglobin Concent 33.7 g/dL (32.0-36.0) Red Cell Distribution Width 14.0 % (11.5-14.5) Mean Platelet Volume 7.3 fL (7.2-11.1) Neutrophils (%) (Auto) 48.7 % (39.4-72.5) Lymphocytes (%) (Auto) 40.7 % (17.6-49.6) Monocytes (%) (Auto) 5.2 % (4.1-12.4) Eosinophils (%) (Auto) 2.3 % (0.4-6.7) Basophils (%) (Auto) 3.1 % (0.3-1.4) Nucleated RBC Relative Count (auto) 0.1 /100WBC Neutrophils # (Auto) 3.5 K/uL (2.0-7.4) Lymphocytes # (Auto) 2.9 K/uL (1.3-3.6) Monocytes # (Auto) 0.4 K/uL (0.3-1.0) Eosinophils # (Auto) 0.2 K/uL (0.0-0.5) Basophils # (Auto) 0.2 K/uL (0.0-0.1) Nucleated RBC Absolute Count (auto) 0.01 K/uL Peripheral Blood Smear Yes Y/N Sodium Level 143 mmol/L (137-145) Potassium Level 3.6 mmol/L (3.5-5.0) Chloride Level 107 mmol/L (98-107) Carbon Dioxide Level 22 mmol/L (22-31) Blood Urea Nitrogen 11 mg/dl (7-18) Creatinine 0.80 mg/dl (0.52-1.04) Glomerular Filtration Rate Calc > 60.0 Random Glucose 96 mg/dl (75-110) Calcium Level 9.6 mg/dl (8.4-10.2) Total Bilirubin 0.3 mg/dl (0.2-1.3) Aspartate Amino Transf (AST/SGOT) 23 U/L (0-35) Alanine Aminotransferase (ALT/SGPT) 29 U/L (0-56) Alkaline Phosphatase 60 U/L (0-126) Troponin I < 0.012 ng/ml Total Protein 7.7 g/dl (6.3-8.2) Albumin 4.4 g/dl (3.5-5.0) Amylase Level 86 U/L (0-110) Lipase 195 U/L (23-300) Chemistry Test 05/30/18 23:10 White Blood Count 7.1 k/uL (4.5-11.0) Red Blood Count 4.83 M/uL (4.17-5.56) Hemoglobin 15.6 g/dL (12.0-16.0) Hematocrit 46.3 % (34.0-47.0) Mean Corpuscular Volume 95.9 fL (80.0-96.0) Mean Corpuscular Hemoglobin 32.3 pg (26.0-33.0) Mean Corpuscular Hemoglobin Concent 33.7 g/dL (32.0-36.0) Red Cell Distribution Width 14.0 % (11.5-14.5) Platelet Count 309 K/uL (150-450) Mean Platelet Volume 7.3 fL (7.2-11.1) Neutrophils (%) (Auto) 48.7 % (39.4-72.5) Lymphocytes (%) (Auto) 40.7 % (17.6-49.6) Monocytes (%) (Auto) 5.2 % (4.1-12.4) Eosinophils (%) (Auto) 2.3 % (0.4-6.7) Basophils (%) (Auto) 3.1 % (0.3-1.4) Nucleated RBC Relative Count (auto) 0.1 /100WBC Neutrophils # (Auto) 3.5 K/uL (2.0-7.4) Lymphocytes # (Auto) 2.9 K/uL (1.3-3.6) Monocytes # (Auto) 0.4 K/uL (0.3-1.0) Eosinophils # (Auto) 0.2 K/uL (0.0-0.5) Basophils # (Auto) 0.2 K/uL (0.0-0.1) Nucleated RBC Absolute Count (auto) 0.01 K/uL Peripheral Blood Smear Yes Y/N Glomerular Filtration Rate Calc > 60.0 Calcium Level 9.6 mg/dl (8.4-10.2) Total Bilirubin 0.3 mg/dl (0.2-1.3) Aspartate Amino Transf (AST/SGOT) 23 U/L (0-35) Alanine Aminotransferase (ALT/SGPT) 29 U/L (0-56) Alkaline Phosphatase 60 U/L (0-126) Troponin I < 0.012 ng/ml Total Protein 7.7 g/dl (6.3-8.2) Albumin 4.4 g/dl (3.5-5.0) Amylase Level 86 U/L (0-110) Lipase 195 U/L (23-300) EKG/Imaging EKG Interpretation 12 lead EKG: Rhythm: normal sinus rhythm, rate 69 Chromo: Indeterminate QRS: Incomplete right bundle ST segments: No ST elevation or depression Imaging CHEST SINGLE AP COMPARISONS: Single view chest dated September 23, 2017 ADDITIONAL PERTINENT HISTORY: Chest pain tonight. FINDINGS: Cardiomediastinal silhouette: Negative. Pulmonary vasculature: Negative. Lung price: Mild scarring at the right lung base. Otherwise negative Pleural spaces: Negative. Osseous structures: Negative. Surrounding soft tissues: Negative. IMPRESSION: 1. Stable scarring at the right lung base. 2. No acute cardiopulmonary disease. Report Dictated By: Roby Locke MD at 05/30/2018 11:56 PM ED Course/Re-evaluation Clinical Indication for ER IV: IV Access ED Course No problems noted on labs or imaging. EKG without signs of ischemia. She did have improvement with GI cocktail. Suspect GERD symptoms. She will follow-up with primary care to discuss if she needs an endoscopy, in the meantime will continue with Omeprazole, Ranitidine, and as needed antacids. Decision to Disposition Date: May 31, 2018 Decision to Disposition Time: 00:12 Depart Departure Latest Vital Signs Vital Signs Date Time Temp Pulse Resp B/P (MAP) Pulse Ox O2 Delivery O2 Flow Rate FiO2 05/31/18 00:00 ??? 143/93 (110) 05/30/18 23:30 93 05/30/18 22:34 97.5 16 Room Air Impression: Primary Impression: Acid reflux Condition: Improved Disposition: HOME OR SELF-CARE Patient Instructions: Gastroesophageal Reflux Disease (ED) Additional Instructions: Keep taking your Ranitidine and Omeprazole. You can use an antacid like Maalox liquid as needed. Alcohol use will continue to irritate your stomach, so it would be best to cut back and then stop drinking. Avoid other acidic, spicy foods, coffee, tea, caffein or chocolate. Follow-up with your doctor for re-evaluation. If not improving, you may need to have an upper endoscopy to look in your stomach. For your urinary tract infection, keep taking your antibiotic prescribed by your doctor. Increase your fluid intake as well. Follow-up with your doctor for the urinary tract infection if you are still having symptoms once finished with your antibiotic. Problem Qualifiers Primary Impression: Acid reflux Esophagitis presence: esophagitis presence not specified Qualified Codes: K21.9 - Gastro-esophageal reflux disease without esophagitis NICKI BERNARD MD May 30, 2018 22:46
[2018-05-30] MEDS ORDERED: ATRO/SCOPOL/HYOSCY/PB 5 ML ELX PO ONE (23:00)
[2018-05-30] MEDS ORDERED: LIDOCAINE 2% VISC SLN 15ML UDC PO ONE (23:00)
[2018-05-30] MEDS ORDERED: PANTOPRAZOLE SOD 40 MG IV VIAL IVP ONE (23:00)
[2018-05-30] MEDS ORDERED: MAG HYD/AL HYD/SIMETH 30ML UDC PO ONE (23:00)
[2018-05-30 23:18] LABS: PLATELET COUNT, AUTOMATED 309 K/uL (150-450)
[2018-05-31] VITALS: BP 143/93
--- NOTE | 2018-05-31 00:01 | RADIOLOGY IMAGING REPORT ---
[place] [facility] [place] NAME: Francisca Mitchell : 1960 MR: [id number] V: [id number] EXAM DATE: ORDERING PHYSICIAN: NICKI BERNARD TECHNOLOG[place] [facility] [place] : 1960 Visit/Account:[id number] Date of Sevice: 05/30/2018 CHEST SINGLE AP COMPARISONS: Single view chest dated September 23, 2017 ADDITIONAL PERTINENT HISTORY: Chest pain tonight. FINDINGS: Cardiomediastinal silhouette: Negative. Pulmonary vasculature: Negative. Lung price: Mild scarring at the right lung base. Otherwise negative Pleural spaces: Negative. Osseous structures: Negative. Surrounding soft tissues: Negative. IMPRESSION: 1. Stable scarring at the right lung base. 2. No acute cardiopulmonary disease. Report Dictated By: Roby Locke MD at 05/30/2018 11:56 PM Report E-Signed By: Roby Locke MD at 05/30/2018 11:57 PM WSN:[id number]
--- NOTE | 2018-05-31 00:16 | EKG ---
[facility] PATIENT NAME: WENDY DALY : [id number] MR: [id number] V: [id number] EXAM DATE: ORDERING PHYSICIAN: NICKI BERNARD TECHNOLOGIST: SALLY Test Reason : CP Blood Pressure : / mmHG Vent. Rate : 069 BPM Atrial Rate : 069 BPM P-R Int : 170 ms QRS Dur : 098 ms QT Int : 410 ms P-R-T Axes : 062 -11 068 degrees QTc Int : 439 ms Normal sinus rhythm Possible Left atrial enlargement T flattening consistent with septal ischemia vs normal variant R wave progression consistent with old ant/sep vs lead placement Inferior infarct (cited on or before 23-SEP-2017) Abnormal ECG When compared with ECG of 23-SEP-2017 22:43, Now with septal T flattening Confirmed by LORNE BECK ([id number]) on 05/31/2018 6:55:09 AM Referred By: Confirmed By:LORNE BECK
== END 2018-05-31 00:21 | disposition home or self-care (01) ==
LOC: ER 22:39
DX: K21.9 Gastro-esophageal reflux disease without esophagitis (principal)
CPT/HCPCS: 71045; 82150; 83690; 84484; 85025; 93005; 96374; 99284; C9113; 82040; 82247; 82310; 82374; 82435; 82565; 82947; 84075; 84132; 84155; 84295; 84450; 84460; 84520

== ENCOUNTER → 2018-05-30 | Outpatient (CLI) | payer MEDICAID ==
[~2018-05-30] MED LIST changes: -RANI75TA5 PO; +RANI75TA51 PO
== END ==
LOC: AMB 22:17
PROVIDERS: ATTEND Nurse Practitioner
DX: R07.9 Chest pain, unspecified (principal)
CPT/HCPCS: A0425; A0429

== ENCOUNTER 2018-08-07 23:28 | Emergency (ER) | payer MEDICAID ==
--- NOTE | 2018-08-07 23:44 | ER Report ---
History and Physical Time Seen By MD: 23:38 Hx. of Stated Complaint: PT APPEARS TO BE INTOXICATED. PT DENIES DRINKING. PT COMPLAINT OF ABDOMINAL AND BLADDER PAIN. HPI/ROS CHIEF COMPLAINT: suprapubic pain, chest pain/cough HISTORY OF PRESENT ILLNESS: This is a 58 year old female. She had called EMS multiple times today. She appears and smells intoxicated, but denies drinking. She says she has had suprapubic abdominal pain for a week now. Has dysuria with history of bladder problems. She denies other abdominal pain and no nausea or vomiting. She has no diarrhea, says normal bowels. She also has some chest pain, cough and sore throat for a week as well. Denies being short of breath. No heart problems. Denies history of lung diseases. She does smoke. Allergies: Coded Allergies: No Known Drug Allergies (Verified , 03/16/18) Home Meds Active Scripts Acyclovir (ACYCLOVIR) 800 Mg Tablet, 800 MG PO QID for 5 Days, #20 TAB Prov:NADIA BRISENO DO 03/16/18 Amoxicillin/Pot Clav 875-125 Mg Tab (AUGMENTIN 875-125 TABLET) 1 Each Tablet, 1 TAB PO Q12H for 7 Days, #14 TAB Prov:NADIA BRISENO DO 03/16/18 Reviewed Nurses Notes: Yes Hx Smoking: Yes (1/2PPD) Smoking Status: Current: Every Day Smoker Exposure to Second Hand Smoke?: Yes Hx Substance Use Disorder: No Hx Alcohol Use: Yes Constitutional Vital Sign - Last 24 Hours 08/07/18 08/07/18 08/07/18 08/07/18 23:31 23:34 23:43 23:58 Temp 97.4 Pulse 64 63 60 Resp 18 B/P (MAP) 158/101 158/101 (120) Pulse Ox 93 93 88 O2 Delivery Room Air 08/08/18 08/08/18 08/08/18 08/08/18 00:00 00:13 00:20 00:28 Pulse 62 60 B/P (MAP) 131/86 (101) 120/86 (97) Pulse Ox 90 86 08/08/18 08/08/18 00:30 01:02 B/P (MAP) 138/90 (106) 142/100 (114) Physical Exam General Appearance: The patient is alert. No acute distress. Appears intoxicated. Eyes: Pupils are equal, round. Reactive to light. No pallor, injection or icterus. Extraocular movements are intact. ENT: Mucous membranes are moist. Normal oral mucosa. Posterior oropharynx is normal. Normal tympanic membranes and canals. Neck: No lymphadenopathy. Respiratory: Lungs are clear to auscultation. There are no retractions or accessory muscle use. Cardiovascular: Regular rate and rhythm. No murmurs, gallops or rubs. Normal capillary refill. Gastrointestinal: Abdomen is soft and non tender. Nondistended. Normal active bowel sounds. No costovertebral angle tenderness with percussion. Neurological: Alert and oriented x3. No focal neurologic deficits Skin: Warm and dry. DIFFERENTIAL DIAGNOSIS: After history and physical exam, differential diagnosis was considered for chest pain including but not limited to myocardial ischemia, pericarditis pulmonary embolus, chest wall pain, pleural inflammation and pulmonary infectious causes. Also with concern about suprapubic pain and dysuria concerning for urinary infection Medical Decision Making Data Points Result Diagram: 08/08/18 0005 08/08/18 0005 Laboratory Hematology Test 08/07/18 23:36 08/08/18 00:05 08/08/18 00:11 Urine Color Adelina Urine Clarity Clear Urine pH 6.0 pH (4.8-9.5) Urine Specific [place] 1.002 Urine Protein Negative mg/dL (NEGATIVE) Urine Glucose (UA) Negative mg/dL (NEGATIVE) Urine Ketones Negative mg/dL (NEGATIVE) Urine Blood Small (NEGATIVE) Urine Nitrite Positive (NEGATIVE) Urine Bilirubin Negative (NEGATIVE) Urine Urobilinogen Negative mg/dL (0.2-1.9) Urine Leukocyte Esterase Negative (NEGATIVE) Urine RBC None /HPF (0-2/HPF) Urine WBC <1 /HPF (0-5/HPF) Urine Squamous Epithelial Cells None /LPF (</=FEW) Urine Bacteria Few /HPF (NONE-FEW) Urine Mucus None /HPF (NONE-FEW) Red Blood Count 4.73 M/uL (4.17-5.56) Mean Corpuscular Volume 94.9 fL (80.0-96.0) Mean Corpuscular Hemoglobin 32.3 pg (26.0-33.0) Mean Corpuscular Hemoglobin Concent 34.1 g/dL (32.0-36.0) Red Cell Distribution Width 13.6 % (11.5-14.5) Mean Platelet Volume 7.4 fL (7.2-11.1) Neutrophils (%) (Auto) 44.2 % (39.4-72.5) Lymphocytes (%) (Auto) 45.9 % (17.6-49.6) Monocytes (%) (Auto) 6.2 % (4.1-12.4) Eosinophils (%) (Auto) 2.2 % (0.4-6.7) Basophils (%) (Auto) 1.5 % (0.3-1.4) Nucleated RBC Relative Count (auto) 0.0 /100WBC Neutrophils # (Auto) 2.8 K/uL (2.0-7.4) Lymphocytes # (Auto) 3.0 K/uL (1.3-3.6) Monocytes # (Auto) 0.4 K/uL (0.3-1.0) Eosinophils # (Auto) 0.1 K/uL (0.0-0.5) Basophils # (Auto) 0.1 K/uL (0.0-0.1) Nucleated RBC Absolute Count (auto) 0.00 K/uL Sodium Level 138 mmol/L (137-145) Potassium Level 3.4 mmol/L (3.5-5.0) Chloride Level 104 mmol/L (98-107) Carbon Dioxide Level 20 mmol/L (22-31) Blood Urea Nitrogen 8 mg/dl (7-18) Creatinine 0.70 mg/dl (0.52-1.04) Glomerular Filtration Rate Calc > 60.0 Random Glucose 97 mg/dl (75-110) Calcium Level 9.3 mg/dl (8.4-10.2) Total Bilirubin 0.3 mg/dl (0.2-1.3) Aspartate Amino Transf (AST/SGOT) 27 U/L (0-35) Alanine Aminotransferase (ALT/SGPT) 32 U/L (0-56) Alkaline Phosphatase 69 U/L (0-126) Troponin I < 0.012 ng/ml Total Protein 7.3 g/dl (6.3-8.2) Albumin 4.4 g/dl (3.5-5.0) Serum Alcohol 232 mg/dl Influenza Virus Type A (PCR) Negative (NEGATIVE) Influenza Virus Type B (PCR) Negative (NEGATIVE) Chemistry Test 08/07/18 23:36 08/08/18 00:05 08/08/18 00:11 Urine Color Adelina Urine Clarity Clear Urine pH 6.0 pH (4.8-9.5) Urine Specific [place] 1.002 Urine Protein Negative mg/dL (NEGATIVE) Urine Glucose (UA) Negative mg/dL (NEGATIVE) Urine Ketones Negative mg/dL (NEGATIVE) Urine Blood Small (NEGATIVE) Urine Nitrite Positive (NEGATIVE) Urine Bilirubin Negative (NEGATIVE) Urine Urobilinogen Negative mg/dL (0.2-1.9) Urine Leukocyte Esterase Negative (NEGATIVE) Urine RBC None /HPF (0-2/HPF) Urine WBC <1 /HPF (0-5/HPF) Urine Squamous Epithelial Cells None /LPF (</=FEW) Urine Bacteria Few /HPF (NONE-FEW) Urine Mucus None /HPF (NONE-FEW) White Blood Count 6.4 k/uL (4.5-11.0) Red Blood Count 4.73 M/uL (4.17-5.56) Hemoglobin 15.3 g/dL (12.0-16.0) Hematocrit 44.8 % (34.0-47.0) Mean Corpuscular Volume 94.9 fL (80.0-96.0) Mean Corpuscular Hemoglobin 32.3 pg (26.0-33.0) Mean Corpuscular Hemoglobin Concent 34.1 g/dL (32.0-36.0) Red Cell Distribution Width 13.6 % (11.5-14.5) Platelet Count 285 K/uL (150-450) Mean Platelet Volume 7.4 fL (7.2-11.1) Neutrophils (%) (Auto) 44.2 % (39.4-72.5) Lymphocytes (%) (Auto) 45.9 % (17.6-49.6) Monocytes (%) (Auto) 6.2 % (4.1-12.4) Eosinophils (%) (Auto) 2.2 % (0.4-6.7) Basophils (%) (Auto) 1.5 % (0.3-1.4) Nucleated RBC Relative Count (auto) 0.0 /100WBC Neutrophils # (Auto) 2.8 K/uL (2.0-7.4) Lymphocytes # (Auto) 3.0 K/uL (1.3-3.6) Monocytes # (Auto) 0.4 K/uL (0.3-1.0) Eosinophils # (Auto) 0.1 K/uL (0.0-0.5) Basophils # (Auto) 0.1 K/uL (0.0-0.1) Nucleated RBC Absolute Count (auto) 0.00 K/uL Glomerular Filtration Rate Calc > 60.0 Calcium Level 9.3 mg/dl (8.4-10.2) Total Bilirubin 0.3 mg/dl (0.2-1.3) Aspartate Amino Transf (AST/SGOT) 27 U/L (0-35) Alanine Aminotransferase (ALT/SGPT) 32 U/L (0-56) Alkaline Phosphatase 69 U/L (0-126) Troponin I < 0.012 ng/ml Total Protein 7.3 g/dl (6.3-8.2) Albumin 4.4 g/dl (3.5-5.0) Serum Alcohol 232 mg/dl Influenza Virus Type A (PCR) Negative (NEGATIVE) Influenza Virus Type B (PCR) Negative (NEGATIVE) Toxicology Test 08/08/18 00:05 Serum Alcohol 232 mg/dl Urinalysis Test 08/07/18 23:36 Urine Color Adelina Urine Clarity Clear Urine pH 6.0 pH (4.8-9.5) Urine Specific [place] 1.002 Urine Protein Negative mg/dL (NEGATIVE) Urine Glucose (UA) Negative mg/dL (NEGATIVE) Urine Ketones Negative mg/dL (NEGATIVE) Urine Blood Small (NEGATIVE) Urine Nitrite Positive (NEGATIVE) Urine Bilirubin Negative (NEGATIVE) Urine Urobilinogen Negative mg/dL (0.2-1.9) Urine Leukocyte Esterase Negative (NEGATIVE) Urine RBC None /HPF (0-2/HPF) Urine WBC <1 /HPF (0-5/HPF) Urine Squamous Epithelial Cells None /LPF (</=FEW) Urine Bacteria Few /HPF (NONE-FEW) Urine Mucus None /HPF (NONE-FEW) EKG/Imaging EKG Interpretation 12 lead EKG: Rhythm: normal sinus rhythm, rate 60 [place]: normal QRS: Left atrial enlargement, incomplete right bundle. ST segments: normal Imaging TWO VIEW CHEST 08/07/2018 11:45 PM. INDICATION: Cough, chest pain. COMPARISON: 05/30/2018 and previous. FINDINGS: Lungs are well-expanded. Probable scarring in the right middle lobe similar to priors. No pneumothorax or pleural effusion. Pulmonary vasculature is unremarkable. Heart size is normal. IMPRESSION: No acute abnormality. Report Dictated By: Bunny Brown MD at 08/08/2018 12:38 AM ED Course/Re-evaluation Clinical Indication for ER IV: IV Access ED Course Labs unremarkable other than alcohol level. No sign of urinary tract infection. Normal chest x-ray and cardiac eval, apparently with upper respiratory infection. Reviewed all this with the patient. She is mad that she is here, saying everything is taking too long. Discharged home. Patient demanding a taxi, but none are available. Decision to Disposition Date: Aug 08, 2018 Decision to Disposition Time: 01:03 Depart Departure Latest Vital Signs Vital Signs Date Time Temp Pulse Resp B/P (MAP) Pulse Ox O2 Delivery O2 Flow Rate FiO2 08/08/18 01:02 142/100 (114) 08/08/18 00:28 60 86 08/07/18 23:31 97.4 18 Room Air Impression: Primary Impression: Upper respiratory infection Additional Impression: Alcohol intoxication Condition: Improved Disposition: HOME OR SELF-CARE Patient Instructions: Abuse of Alcohol (ED), Alcohol Intoxication (ED), Upper Respiratory Infection (ED) Additional Instructions: Rest and increase fluid intake. Try to cut back on alcohol intake. Problem Qualifiers Primary Impression: Upper respiratory infection URI type: unspecified viral URI Qualified Codes: J06.9 - Acute upper respiratory infection, unspecified Additional Impression: Alcohol intoxication Complication of substance-induced condition: uncomplicated Qualified Codes: F10.920 - Alcohol use, unspecified with intoxication, uncomplicated NICKI BERNRAD MD Aug 07, 2018 23:44
[2018-08-08 00:19] LABS: PLATELET COUNT, AUTOMATED 285 K/uL (150-450)
--- NOTE | 2018-08-08 00:44 | RADIOLOGY IMAGING REPORT ---
FACILITY: [facility] [place] PATIENT NAME: Francisca Mitchell : 1960 MR: [id number] V: [id number] EXAM DATE: ORDERING PHYSICIAN: NICKI BERNARD TECHNOLOGIST: Location: [facility] [place] Patient: Francisca Mitchell : 1960 Visit/Account:[id number] Date of Sevice: 08/07/2018 TWO VIEW CHEST 08/07/2018 11:45 PM. INDICATION: Cough, chest pain. COMPARISON: 05/30/2018 and previous. FINDINGS: Lungs are well-expanded. Probable scarring in the right middle lobe similar to priors. No pneumothorax or pleural effusion. Pulmonary vasculature is unremarkable. Heart size is normal. IMPRESSION: No acute abnormality. Report Dictated By: Bunny Brown MD at 08/08/2018 12:38 AM Report E-Signed By: Bunny Brown MD at 08/08/2018 12:39 AM WSN:[id number]
--- NOTE | 2018-08-08 00:45 | EKG ---
FACILITY: [facility] PATIENT NAME: WENDY DALY : [id number] MR: [id number] V: [id number] EXAM DATE: ORDERING PHYSICIAN: NICKI BERNARD TECHNOLOGIST: SALLY Test Reason : CP Blood Pressure : / mmHG Vent. 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
[2018-08-08 01:02] VITALS: BP 142/100
== END 2018-08-08 01:12 | disposition home or self-care (01) ==
LOC: ER 23:36
DX: J06.9 Acute upper respiratory infection, unspecified (principal); F10.920 Alcohol use, unspecified with intoxication, uncomplicated; Y90.7 Blood alcohol level of 200-239 mg/100 ml
CPT/HCPCS: 71046; 81001; 84484; 85025; 87502; 93005; 99284; G0480; 80320; 82040; 82247; 82310; 82374; 82435; 82565; 82947; 84075; 84132; 84155; 84295; 84450; 84460; 84520

== ENCOUNTER → 2018-08-07 | Outpatient (CLI) | payer MEDICAID ==
[~2018-08-07] MED LIST changes: -RANI75TA5 PO; +RANI75TA51 PO
== END ==
LOC: AMB 23:06
PROVIDERS: ATTEND Nurse Practitioner
DX: R10.9 Unspecified abdominal pain (principal)
CPT/HCPCS: A0425; A0429